=== PATIENT | female | born 1985 | race Caucasian/White ===

== ENCOUNTER 2017-05-07 14:39 | Emergency (ER) | payer MEDICAID ==
--- NOTE | 2017-05-07 15:32 | ED Physician Chart ---
ED Chief Complaint/HPI - Patient Information Date Seen:: 05/07/17 Time Seen:: 15:20 Chief Complaint:: abdominal pain History of Present Illness:: Patient said suprapubic pain for 4 days. She's also had chills. She did not take her temperature. She has dysuria with urge for frequent urination with the production of a small amount a urine. She normally has low back and shoulder pain and thinks she has had no recent increase in that pain. Allergies:: Allergies Allergy/AdvReac Type Severity Reaction Status Date / Time amoxicillin [From Augmentin] Allergy RASH Verified 05/07/17 15:00 clavulanic acid Allergy RASH Verified 05/07/17 15:00 [From Augmentin] Penicillins [PCN] Allergy RASH Verified 05/07/17 15:00 Vitals:: Vital Signs - 8 hr 05/07/17 14:45 Temp 97.9 F HR 85 RR 18 BP 139/78 O2 Sat % 100 Historian:: Patient Review:: Nurse's Note Reviewed ED Review of Systems - Review of Systems General/Constitutional: Chills Skin: No skin lesions Head: No headache Eyes: No loss of vision ENT: No earache Neck: No neck pain, No swelling Cardio Vascular: No chest pain Pulmonary: No SOB GI: No nausea, No vomiting, No diarrhea G/U: Dysuria, Frequency, No hematuria Musculoskeletal: No bone or joint pain Endocrine: No polyuria, No polydipsia Psychiatric: Prior psych history, Anxiety ED Past Medical History - Past Medical History Past Medical History: Asthma/COPD, Other (anxiety; depression) Family History: None Social History: No Alcohol (smokes medical marijuana), Other Surgical History: None Psychiatricy History: Depression, Other (anxiety) Family Medical History - Family Member Mother Age: 65 Ethnicity: Non- Living Status: Still Living Other Medical History: NARCOLEPSY ED Assessment - Assessment General Assessment: Laboratory Results - last 24 hr 05/07/17 05/07/17 14:55 14:55 Urine Source CLEAN C Urine Color YELLOW Urine Clarity CLEAR Urine pH 6.0 Ur Specific [place] 1.020 Urine Protein NEGATIVE Urine Glucose (UA) NEGATIVE Urine Ketones NEGATIVE Urine Blood TRACE Urine Nitrate NEGATIVE Urine Bilirubin NEGATIVE Urine Urobilinogen 0.2 Ur Leukocyte Esterase SMALL H Urine RBC 2-5 Urine WBC 10-25 H Ur Epithelial Cells MODERATE Urine Bacteria FEW Urine Test NEGATIVE ED Septic Shock - . Is Septic Shock (SBP<90, OR Lactate>4 mmol\L) present?: No - <6hrs of presentation: Vital Signs: Vital Signs - 8 hr 05/07/17 14:45 Temp 97.9 F HR 85 RR 18 BP 139/78 O2 Sat % 100 ED Reassessment (Disposition) - Reassessment Reassessment Condition:: Unchanged - Diagnosis Diagnosis:: Urinary tract infection - Aftercare/Follow up Instructions Aftercare/Follow-Up Instructions:: Refer to Discharge Instructions Medication Prescribed:: Macrobid 100 mg twice a day 7 days and pyridium 100 mg #12 one 3 times a day - Patient Disposition Discharge/Transfer:: Home Condition at Disposition:: Stable, Unchanged ED Discharge Plan - Patient Disposition Instructions: Urinary Tract Infection
[2017-05-07 15:53] LABS: URINE BILIRUBIN NEGATIVE (NEGATIVE); URINE BLOOD TRACE (NEGATIVE); URINE GLUCOSE (UA) NEGATIVE (NEGATIVE); URINE KETONE NEGATIVE (NEGATIVE); URINE LEUKOCYTE ESTERASE SMALL (NEGATIVE); URINE MICROSCOPIC INDICATED? YES; URINE NITRATE NEGATIVE (NEGATIVE); URINE PROTEIN NEGATIVE (NEGATIVE); URINE SOURCE CLEAN C; URINE UROBILINOGEN 0.2 E.U./dL (0.2 - 1.0)
[2017-05-07 16:03] LABS: URINE CLARITY CLEAR (CLEAR); URINE COLOR YELLOW
[2017-05-07 16:11] LABS: URINE BACTERIA FEW /hpf (NONE SEEN); URINE EPITHELIAL CELLS MODERATE /lpf (FEW)
== END 2017-05-07 17:30 | disposition home or self-care (01) ==
LOC: ER 14:39
DX: N39.0 Urinary tract infection, site not specified (principal); J45.909 Unspecified asthma, uncomplicated; J44.9 Chronic obstructive pulmonary disease, unspecified
CPT/HCPCS: 81001-TC; 81025-TC; 87086-90; Z7502